=== PATIENT | female | born 1990 | race Caucasian/White ===

== ENCOUNTER → 2016-06-13 | Outpatient (REF) | payer OTHER, MEDICAID | END | disposition home or self-care (01) | LOC: M SFHCPLAZ 09:02 | PROVIDERS: ATTEND Family Medicine | DX: R46.89 Other symptoms and signs involving appearance and behavior (principal); R63.2 Polyphagia ==

== ENCOUNTER → 2016-11-04 | Outpatient (CLI) | payer OTHER, MEDICAID | LOC: M LAB 14:21 | PROVIDERS: ATTEND Family Medicine | DX: E55.9 Vitamin D deficiency, unspecified (principal) ==

== ENCOUNTER → 2017-11-27 | Outpatient (CLI) | payer OTHER, MEDICAID ==
[2017-11-27 09:46] LABS: PROLACTIN 15.2 NG/ML
[2017-11-27 09:47] LABS: FOLLICLE STIMULATING HORMONE 9.6 mIU/mL; LUTEINIZING HORMONE 42.7 mIU/mL
[2017-11-30 08:11] LABS: ESTROGENS TOTAL 326 pg/mL (.)
== END ==
LOC: M LAB 08:41
DX: R45.1 Restlessness and agitation (principal)
CPT/HCPCS: 83001

== ENCOUNTER → 2018-06-05 | Outpatient (CLI) | payer OTHER, MEDICAID ==
[2018-06-05 14:35] LABS: ALBUMIN 3.8 GM/DL (3.2-5.2); ALT/SGPT 22 U/L (12-78); BILIRUBIN,DIRECT < 0.1 MG/DL (0.0-0.2); BILIRUBIN,TOTAL 0.2 MG/DL (0.2-1.0)
== END ==
LOC: M LAB 13:31
PROVIDERS: ATTEND Anesthesiology Pain Medicine
DX: Z79.899 Other long term (current) drug therapy (principal)

== ENCOUNTER → 2018-06-06 | Outpatient (REF) | payer OTHER, MEDICAID | LOC: M LAB REF 10:37 | PROVIDERS: ATTEND Anesthesiology Pain Medicine | DX: K30 Functional dyspepsia (principal); R19.4 Change in bowel habit ==

== ENCOUNTER → 2018-07-30 | Outpatient (CLI) | payer OTHER, MEDICAID ==
[2018-07-30 08:11] LABS: BASO # 0.1 10^3/uL (0.0-0.2); BASO % 0.6 % (0.0-1.0); EOS # 0.2 10^3/uL (0.0-0.50); EOS % 2.7 % (0.0-3.0); HEMATOCRIT 42.5 % (36.0-47.0); LYMPH # 2.3 10^3/uL (1.5-6.5); MEAN CORPUSCULAR HEMOGLOBIN 29.2 pg (27.0-33.0); MEAN CORPUSCULAR HGB CONC 32.9 g/dl (32.0-36.5); MEAN CORPUSCULAR VOLUME 88.5 fl (80.0-96.0); MONO # 0.6 10^3/uL (0.0-0.8); MONO % 7.1 % (0.0-5.0); NEUTROPHILS # 4.7 10^3/uL (1.8-7.7); PLATELET COUNT, AUTOMATED 250 10^3/uL (150-450); WHITE BLOOD COUNT 7.8 10^3/uL (4.0-10.0)
[2018-07-30 11:19] LABS: CHOLESTEROL LEVEL 194 MG/DL (<200); CHOLESTEROL RISK RATIO 2.939 (<5); FREE T3 3.2 PG/ML (2.2-4.0); FREE T4 1.15 NG/DL (0.76-1.46); HDL CHOLESTEROL 66 MG/DL (>40); LDL CHOLESTEROL 108 MG/DL (<100); NON-HDL-C 128 MG/DL; THYROID PEROXIDASE ANTIBODY < 28.0 U/ML (<60.0); TOTAL 25(OH) VITAMIN D 17.1 NG/ML (30.0-100.0); TRIGLYCERIDES LEVEL 99 MG/DL (<150)
[2018-08-01 14:25] LABS: TISSUE TRANSGLUTAMINASE IgA <2 U/mL (0-3); UNITSIGA FOR GLIADIN IGA 4 units (0-19); UNITSIGG FOR GLIADIN IGG 4 units (0-19)
== END ==
LOC: M LAB 07:35
PROVIDERS: ATTEND Nurse Practitioner Pediatrics
DX: F34.89 Other specified persistent mood disorders (principal)

== ENCOUNTER → 2018-09-10 | Outpatient (CLI) | payer OTHER, MEDICAID ==
[2018-09-10 20:41] LABS: BASO % 0.2 % (0.0-1.0); EOS % 0.2 % (0.0-3.0); HEMATOCRIT 43.9 % (36.0-47.0); HEMOGLOBIN 14.5 g/dl (12.0-15.5); LYMPH # 1.3 10^3/uL (1.5-6.5); LYMPH % 9.7 % (24.0-44.0); MEAN CORPUSCULAR VOLUME 87.8 fl (80.0-96.0); MONO # 0.3 10^3/uL (0.0-0.8); NEUTROPHILS # 11.4 10^3/uL (1.8-7.7); NEUTROPHILS % 87.5 % (36.0-66.0); PLATELET COUNT, AUTOMATED 238 10^3/uL (150-450); WHITE BLOOD COUNT 13.1 10^3/uL (4.0-10.0)
[2018-09-10 20:48] LABS: ALBUMIN 4.1 GM/DL (3.2-5.2); ALT/SGPT 37 U/L (12-78); BILIRUBIN,TOTAL 0.5 MG/DL (0.2-1.0); BLOOD UREA NITROGEN 19 MG/DL (7-18); CALCIUM LEVEL 9.5 MG/DL (8.5-10.1); CARBON DIOXIDE LEVEL 28 MEQ/L (21-32); CHLORIDE LEVEL 102 MEQ/L (98-107); CREATININE FOR GFR 0.71 MG/DL (0.55-1.30); GLOMERULAR FILTRATION RATE > 60.0 (>60); GLUCOSE, FASTING 127 MG/DL (70-100); LIPASE 81 U/L (73-393); POTASSIUM SERUM 4.4 MEQ/L (3.5-5.1); SODIUM LEVEL 138 MEQ/L (136-145); TOTAL PROTEIN 7.6 GM/DL (6.4-8.2)
--- NOTE | 2018-09-11 02:09 | REP ---
Clinical: Nausea and vomiting with abdominal pain. Technique: Upright view of the chest with supine and upright views of the abdomen and pelvis. Findings: Frontal upright view of the chest demonstrates no acute cardiopulmonary process or free air below the diaphragm to suspect pneumoperitoneum. Supine and upright views of the abdomen and pelvis demonstrate nonspecific bowel gas pattern without obstruction or perforation. No organomegaly. No abnormal calcifications. Skeletal structures normal for age. Impression: Nonspecific bowel gas pattern. Electronically Signed by Gelacio Dias MD 09/11/2018 02:02 A
== END ==
LOC: M WUC 17:11
PROVIDERS: ATTEND Physician Assistant
DX: R11.2 Nausea with vomiting, unspecified (principal)

== ENCOUNTER 2018-11-20 06:42 | Day surgery (SDC) | payer OTHER, MEDICAID ==
[~2018-11-20] VITALS: Ht 154.9 cm; Wt 70.3 kg
[~2018-11-20 06:42] MED LIST: CETI10CH PO; HALO1TA PO; HM V4000 PO; METF500T13 PO; NS 1,000 ML IV ONE; ZOLO50TA PO
[2018-11-20] MEDS ORDERED: LIDOCAINE 2% INJ 100 MG/5 ML SDV (FOR ANES.) As Ordered ONE (07:08)
[2018-11-20] MEDS ORDERED: PROPOFOL 200 MG/20 ML VIAL As Ordered ONE (07:08)
[2018-11-20] MEDS ORDERED: MIDAZOLAM INJ 2 MG/2 ML VIAL (J2250) As Ordered ONE (07:26)
[2018-11-20] MEDS ORDERED: fentaNYL 100 MCG/2 ML INJECTION (J3010) As Ordered ONE (07:26)
--- NOTE | 2018-11-20 08:42 | ROOR ---
Patient Name: Coty Hurtado Procedure Date: 11/20/2018 8:07 AM Date of : 1990 Age: 28 Room: [facility] Gender: Female Note Status: Finalized Procedure: Upper GI endoscopy Indications: Persistent vomiting of unknown cause Providers: Agustin Ha MD Referring MD: ELIZABETH Goodman Requesting Provider: Medicines: Monitored Anesthesia Care Complications: No immediate complications. Procedure: Pre-Anesthesia Assessment: - Prior to the procedure, a History and Physical was performed, and patient medications and allergies were reviewed. The patient is competent. The risks and benefits of the procedure and the sedation options and risks were discussed with the patient. All questions were answered and informed consent was obtained. Patient identification and proposed procedure were verified by the physician, the nurse and the anesthesiologist in the procedure room. Mental Status Examination: alert and oriented. Airway Examination: normal oropharyngeal airway and neck mobility. Respiratory Examination: clear to auscultation. CV Examination: normal. Prophylactic Antibiotics: The patient does not require prophylactic antibiotics. Prior Anticoagulants: The patient has taken no previous anticoagulant or antiplatelet agents. ASA Grade Assessment: II - A patient with mild systemic disease. After reviewing the risks and benefits, the patient was deemed in satisfactory condition to undergo the procedure. The anesthesia plan was to use monitored anesthesia care (MAC). Immediately prior to administration of medications, the patient was re-assessed for adequacy to receive sedatives. The heart rate, respiratory rate, oxygen saturations, blood pressure, adequacy of pulmonary ventilation, and response to care were monitored throughout the procedure. The physical status of the patient was re-assessed after the procedure. The Endoscope was introduced through the mouth, and advanced to the second part of duodenum. The upper GI endoscopy was accomplished without difficulty. The patient tolerated the procedure well. Findings: The Z-line was regular and was found 35 cm from the incisors. Normal mucosa was found in the entire esophagus. Biopsies were obtained from the proximal and distal esophagus with cold forceps for histology of suspected eosinophilic esophagitis. Verification of patient identification for the specimen was done by the physician and nurse using the patient's name, date and medical record number. Estimated blood loss was minimal. Scattered minimal inflammation characterized by erythema and granularity was found in the gastric antrum. Biopsies were taken with a cold forceps for Helicobacter pylori testing. The duodenal bulb and second portion of the duodenum were normal. Biopsies for histology were taken with a cold forceps for evaluation of celiac disease. Impression: - Z-line regular, 35 cm from the incisors. - Normal mucosa was found in the entire esophagus. Biopsied. - Gastritis. Biopsied. - Normal duodenal bulb and second portion of the duodenum. Biopsied. Recommendation: - Patient has a contact number available for emergencies. The signs and symptoms of potential delayed complications were discussed with the patient. Return to normal activities tomorrow. Written discharge instructions were provided to the patient. - Resume previous diet. - Continue present medications. - Await pathology results. - Telephone GI clinic for pathology results in 2 weeks. - Return to primary care physician. Agustin Ha MD Agustin Ha MD 11/20/2018 8:41:53 AM Electronically signed by Agustin Ha MD Number of Addenda: 0 Note Initiated On: 11/20/2018 8:07 AM Estimated Blood Loss: Estimated blood loss was minimal.
[2018-11-20 08:56] VITALS: BP 125/82
== END 2018-11-20 08:58 | disposition home or self-care (01) ==
LOC: M OPP 06:42
PROVIDERS: ATTEND Internal Medicine Gastroenterology
DX: K29.70 Gastritis, unspecified, without bleeding (principal); R11.10 Vomiting, unspecified; Z79.899 Other long term (current) drug therapy; Z88.2 Allergy status to sulfonamides
CPT/HCPCS: 43239; 88305; J2250; J3010

== ENCOUNTER → 2019-03-19 | Outpatient (REF) | payer OTHER, MEDICAID ==
[~2019-03-19] MED LIST changes: -NS 1,000 ML IV ONE
[2019-03-19 13:23] LABS: ALBUMIN 3.9 GM/DL (3.2-5.2); ALT/SGPT 32 U/L (12-78); BILIRUBIN,TOTAL 0.3 MG/DL (0.2-1.0); BLOOD UREA NITROGEN 16 MG/DL (7-18); CALCIUM LEVEL 9.5 MG/DL (8.5-10.1); CARBON DIOXIDE LEVEL 29 MEQ/L (21-32); CHLORIDE LEVEL 105 MEQ/L (98-107); CREATININE FOR GFR 0.74 MG/DL (0.55-1.30); GLOMERULAR FILTRATION RATE > 60.0 (>60); GLUCOSE, FASTING 86 MG/DL (70-100); POTASSIUM SERUM 4.8 MEQ/L (3.5-5.1); SODIUM LEVEL 139 MEQ/L (136-145); TOTAL PROTEIN 7.4 GM/DL (6.4-8.2)
[2019-03-19 13:35] LABS: HEMOGLOBIN A1c 5.5 %
== END ==
LOC: M SFHCADAM 09:33
PROVIDERS: ATTEND Family Medicine
DX: R63.5 Abnormal weight gain (principal); Z79.899 Other long term (current) drug therapy

== ENCOUNTER 2019-04-22 09:00 | Outpatient (RCR) | payer OTHER, MEDICAID | END 2019-04-30 | LOC: M ST 09:00 | PROVIDERS: ATTEND Physician Assistant | DX: G80.9 Cerebral palsy, unspecified (principal) ==

== ENCOUNTER 2019-05-27 10:00 | Outpatient (RCR) | payer OTHER, MEDICAID | END 2019-05-31 | LOC: M ST 10:00 | PROVIDERS: ATTEND Physician Assistant | DX: G80.9 Cerebral palsy, unspecified (principal) ==

== ENCOUNTER → 2019-06-20 | Outpatient (CLI) | payer OTHER, MEDICAID ==
[2019-06-20 07:33] LABS: BASO % 0.4 % (0.0-1.0); EOS # 0.2 10^3/uL (0.0-0.5); EOS % 2.2 % (0.0-3.0); HEMATOCRIT 42.7 % (36.0-47.0); HEMOGLOBIN 13.9 g/dl (12.0-15.5); LYMPH # 2.8 10^3/uL (1.5-5.0); LYMPH % 34.8 % (24.0-44.0); MEAN CORPUSCULAR HEMOGLOBIN 28.5 pg (27.0-33.0); MEAN CORPUSCULAR HGB CONC 32.6 g/dl (32.0-36.5); MEAN CORPUSCULAR VOLUME 87.5 fl (80.0-96.0); MONO # 0.7 10^3/uL (0.0-0.8); MONO % 8.8 % (0.0-5.0); NEUTROPHILS # 4.3 10^3/uL (1.5-8.5); NEUTROPHILS % 53.6 % (36.0-66.0); PLATELET COUNT, AUTOMATED 221 10^3/uL (150-450); RED BLOOD COUNT 4.88 10^6/uL (4.00-5.40); WHITE BLOOD COUNT 8.1 10^3/uL (4.0-10.0)
[2019-06-20 08:01] LABS: ERYTHROCYTE SEDIMENTATION RATE 8 mm/hr (0-20)
[2019-06-20 08:06] LABS: ALBUMIN 3.8 GM/DL (3.2-5.2); ALT/SGPT 28 U/L (12-78); BILIRUBIN,TOTAL 0.4 MG/DL (0.2-1.0); BLOOD UREA NITROGEN 17 MG/DL (7-18); C REACTIVE PROTEIN QUANTITATIV 0.54 MG/DL (0.00-0.30); CALCIUM LEVEL 8.7 MG/DL (8.5-10.1); CARBON DIOXIDE LEVEL 29 MEQ/L (21-32); CHLORIDE LEVEL 107 MEQ/L (98-107); CREATININE FOR GFR 0.74 MG/DL (0.55-1.30); FREE T4 1.03 NG/DL (0.76-1.46); GLOMERULAR FILTRATION RATE > 60.0 (>60); GLUCOSE, FASTING 94 MG/DL (70-100); IMMUNOGLOBULIN G 1260 MG/DL (681-1648); IRON (FE) 51 UG/DL (50-170); PERCENT SATURATION 16.4 % (13.2-45.0); POTASSIUM SERUM 4.6 MEQ/L (3.5-5.1); SODIUM LEVEL 140 MEQ/L (136-145); TOTAL IRON BINDING CAPACITY 311 UG/DL (250-450); TOTAL PROTEIN 7.4 GM/DL (6.4-8.2)
[2019-06-20 10:19] LABS: TOTAL 25(OH) VITAMIN D 44.2 NG/ML (30.0-100.0)
== END ==
LOC: M LAB 06:37
PROVIDERS: ATTEND Nurse Practitioner Pediatrics
DX: F34.81 Disruptive mood dysregulation disorder (principal); F02.81 Dementia in other diseases classified elsewhere, unspecified severity, with behavioral disturbance

== ENCOUNTER 2019-06-25 09:16 | Outpatient (RCR) | payer OTHER, MEDICAID | END 2019-06-29 | LOC: M ST 09:16 | PROVIDERS: ATTEND Physician Assistant | DX: G80.9 Cerebral palsy, unspecified (principal) ==

== ENCOUNTER 2019-07-09 13:00 | Outpatient (RCR) | payer OTHER, MEDICAID | END 2019-07-30 | LOC: M ST 13:00 | PROVIDERS: ATTEND Physician Assistant | DX: Z51.89 Encounter for other specified aftercare (principal); G80.9 Cerebral palsy, unspecified ==

== ENCOUNTER → 2019-11-01 | Outpatient (CLI) | payer OTHER, MEDICAID ==
[2019-11-01 14:49] LABS: ALBUMIN 3.7 GM/DL (3.2-5.2); ALT/SGPT 54 U/L (12-78); BILIRUBIN,DIRECT < 0.1 MG/DL (0.0-0.2); BILIRUBIN,TOTAL 0.3 MG/DL (0.2-1.0); CARBAMAZEPINE (TEGRETOL) LEVEL 4.3 UG/ML (4.0-10.0); TOTAL PROTEIN 7.3 GM/DL (6.4-8.2)
== END ==
LOC: M LAB 13:15
PROVIDERS: ATTEND Physician Assistant
DX: F84.0 Autistic disorder (principal)

== ENCOUNTER 2020-01-18 16:35 | Emergency (ER) | payer OTHER, MEDICAID ==
[~2020-01-18] VITALS: Ht 154.9 cm; Wt 63.3 kg
[2020-01-18] MEDS ORDERED: INVE1.5T PO (16:55)
[2020-01-18] MEDS ORDERED: SPRI28TA PO (16:55)
[2020-01-18] MEDS ORDERED: ONDANSETRON 4 MG ORAL DISINTEGRATING TAB PO ONE (18:30)
[2020-01-18 18:37] VITALS: BP 123/85
[2020-01-18] MEDS ORDERED: [UNRECOGNIZED DRUG - OTHER] (18:48)
== END 2020-01-18 19:09 | disposition home or self-care (01) ==
LOC: M ED 16:35
DX: H51.8 Other specified disorders of binocular movement (principal); F84.0 Autistic disorder; G80.9 Cerebral palsy, unspecified; E11.9 Type 2 diabetes mellitus without complications; K21.9 Gastro-esophageal reflux disease without esophagitis; Z88.2 Allergy status to sulfonamides; Z79.899 Other long term (current) drug therapy
CPT/HCPCS: 99283; Q0162

== ENCOUNTER → 2020-01-22 | Outpatient (CLI) | payer OTHER, MEDICAID ==
[~2020-01-22] MED LIST changes: +INVE1.5T PO; +SPRI28TA PO; +[UNRECOGNIZED DRUG - OTHER]
--- NOTE | 2020-01-27 06:47 | EEG ---
DATE: 01/22/2020 REFERRING PHYSICIAN: Catrachita Rodriguez DIAGNOSIS: Convulsions EEG #: [id number] HISTORY: The patient is a 29-year-old developmentally delayed woman, who had episodes of upward eye movements, looking up bilaterally since November 2019. The patient was being weaned off Tegretol. This electroencephalogram (EEG) was done to rule out epileptic potential. She is currently taking Zoloft, paliperidone, metformin, TECHNICAL DESCRIPTION: This digital electroencephalogram (EEG) was recorded by 21 scalp, ear and two electrocardiogram (EKG) electrodes and was reviewed in bipolar and referential montages following reformatting in 10-20 international placement system. INTERPRETATION: The patient was noted to be in awake and drowsy states during this electroencephalogram (EEG). Resting and awake background rhythm consisted of 10 Hz alpha activity measuring 15-40 microvolts in amplitude, which was symmetric and reactive to eye opening. Attenuation of posterior dominant rhythm was seen during transition to drowsiness. No sleep was achieved. Excessive muscle artifact was noted in bilateral frontal and temporal head vision. Hyperventilation could not be performed. Photic stimulation remained unremarkable. No focal, lateralizing or epileptiform abnormalities were seen. No relevant clinical activity was noted. Electrocardiogram (EKG) revealed normal sinus rhythm. CONCLUSION: This electroencephalogram (EEG) in awake and drowsy states is within normal limits. MTDD
== END ==
LOC: M SLEEP 07:57
PROVIDERS: ATTEND Emergency Medicine
DX: R56.9 Unspecified convulsions (principal)

== ENCOUNTER → 2020-03-25 | Outpatient (REF) | payer OTHER, MEDICAID ==
[2020-03-25 13:36] LABS: ALBUMIN 3.8 GM/DL (3.2-5.2); ALT/SGPT 24 U/L (12-78); BILIRUBIN,TOTAL 0.2 MG/DL (0.2-1.0); BLOOD UREA NITROGEN 12 MG/DL (7-18); CALCIUM LEVEL 9.7 MG/DL (8.5-10.1); CARBON DIOXIDE LEVEL 30 MEQ/L (21-32); CHLORIDE LEVEL 102 MEQ/L (98-107); CREATININE FOR GFR 0.76 MG/DL (0.55-1.30); GLOMERULAR FILTRATION RATE > 60.0 (>60); GLUCOSE, FASTING 88 MG/DL (70-100); POTASSIUM SERUM 4.1 MEQ/L (3.5-5.1); SODIUM LEVEL 139 MEQ/L (136-145); TOTAL PROTEIN 7.2 GM/DL (6.4-8.2)
[2020-03-25 13:56] LABS: HEMOGLOBIN A1c 5.1 %
== END ==
LOC: M SFHCADAM 09:09
PROVIDERS: ATTEND Physician Assistant
DX: R73.01 Impaired fasting glucose (principal); K59.09 Other constipation; K21.9 Gastro-esophageal reflux disease without esophagitis

== ENCOUNTER → 2021-02-18 | Outpatient (REF) | payer MEDICAID, OTHER | LOC: M SFHCADAM 17:47 | PROVIDERS: ATTEND Family Medicine | DX: R09.81 Nasal congestion (principal) ==

== ENCOUNTER → 2021-08-19 | Outpatient (REF) | payer MEDICAID ==
[~2021-08-19] MED LIST changes: -HALO1TA PO; +HALO1TAB PO
[2021-08-19 17:50] LABS: HEMATOCRIT 41.8 % (36.0-47.0); HEMOGLOBIN 13.8 g/dl (12.0-15.5); MEAN CORPUSCULAR HEMOGLOBIN 30.1 pg (27.0-33.0); MEAN CORPUSCULAR VOLUME 91.1 fl (80.0-96.0); PLATELET COUNT, AUTOMATED 247 10^3/uL (150-450); RED BLOOD COUNT 4.59 10^6/uL (4.00-5.40); WHITE BLOOD COUNT 9.2 10^3/uL (4.0-10.0)
[2021-08-19 18:23] LABS: ALBUMIN 3.9 GM/DL (3.2-5.2); ALT/SGPT 37 U/L (12-78); BILIRUBIN,TOTAL 0.2 MG/DL (0.2-1.0); BLOOD UREA NITROGEN 15 MG/DL (7-18); CALCIUM LEVEL 9.3 MG/DL (8.5-10.1); CARBON DIOXIDE LEVEL 30 MEQ/L (21-32); CHLORIDE LEVEL 105 MEQ/L (98-107); FREE T4 0.67 NG/DL (0.76-1.46); GLOMERULAR FILTRATION RATE > 60.0 (>60); GLUCOSE, FASTING 72 MG/DL (70-100); POTASSIUM SERUM 4.5 MEQ/L (3.5-5.1); SODIUM LEVEL 141 MEQ/L (136-145); TOTAL PROTEIN 7.1 GM/DL (6.4-8.2)
== END ==
LOC: M SFHCADAM 15:31
PROVIDERS: ATTEND Physician Assistant
DX: R55 Syncope and collapse (principal)

== ENCOUNTER → 2021-09-09 | Outpatient (REF) | payer MEDICAID ==
[2021-09-09 14:07] LABS: FREE T4 0.8 NG/DL (0.76-1.46); THYROID STIMULATING HORMONE 2.01 uIU/ML (0.358-3.740)
== END ==
LOC: M SFHCPLAZ 09:09
PROVIDERS: ATTEND Physician Assistant
DX: R79.89 Other specified abnormal findings of blood chemistry (principal)

== ENCOUNTER → 2021-10-14 | Outpatient (REF) | payer MEDICAID, OTHER | LOC: M SFHCDERM 17:20 | PROVIDERS: ATTEND Nurse Practitioner Family | DX: L85.9 Epidermal thickening, unspecified (principal) ==

== ENCOUNTER → 2021-10-31 | Outpatient (CLI) | payer MEDICAID, OTHER ==
[~2021-10-31] MED LIST changes: +CVS1CAP2 PO; +VITA100093 PO
== END ==
LOC: M LABSMTC 11:39
PROVIDERS: ATTEND Anesthesiology
DX: Z01.812 Encounter for preprocedural laboratory examination (principal); Z11.52 Encounter for screening for COVID-19

== ENCOUNTER 2021-11-03 10:32 | Day surgery (SDC) | payer OTHER ==
[~2021-11-03] VITALS: Ht 154.9 cm; Wt 65.3 kg
[~2021-11-03 10:32] MED LIST changes: +ceFAZolin SOD 2 GM in IV 1 EA IV ONE
[2021-11-03] MEDS ORDERED: LR 1,000 ML IV SCH (10:45)
[2021-11-03] MEDS ORDERED: LIDOCAINE 1% SDV 30ML VIAL As Ordered ONE (12:03)
[2021-11-03] MEDS ORDERED: MIDAZOLAM INJ 2MG/2ML VIAL (J2250 PER 1MG) As Ordered ONE (13:11)
[2021-11-03] MEDS ORDERED: fentaNYL 100 MCG/2 ML INJECTION As Ordered ONE (13:11)
[2021-11-03] MEDS ORDERED: ONDANSETRON 4MG 2ML VIAL As Ordered ONE (13:11)
[2021-11-03] MEDS ORDERED: propofoL 200 MG/20 ML VIAL As Ordered ONE (13:11)
[2021-11-03] MEDS ORDERED: LIDOCAINE 2% INJ 100 MG/5 ML SYRINGE As Ordered ONE (13:11)
[2021-11-03] MEDS ORDERED: MUPIROCIN 2% OINT 22 GM TUBE As Ordered ONE (13:16)
[2021-11-03 13:26] VITALS: BP 139/82
== END 2021-11-03 13:48 | disposition home or self-care (01) ==
LOC: M SDC 10:32
PROVIDERS: ATTEND Internal Medicine Cardiovascular Disease
DX: R55 Syncope and collapse (principal); I45.10 Unspecified right bundle-branch block; F41.9 Anxiety disorder, unspecified; I51.9 Heart disease, unspecified; K44.9 Diaphragmatic hernia without obstruction or gangrene; J21.9 Acute bronchiolitis, unspecified; J30.2 Other seasonal allergic rhinitis
CPT/HCPCS: 33285; 81025; C1764; J0690; J2250; J2405; J3010

== ENCOUNTER → 2021-11-09 | Outpatient (REF) | payer OTHER ==
[~2021-11-09] MED LIST changes: -ceFAZolin SOD 2 GM in IV 1 EA IV ONE
== END ==
LOC: M SFHCDERM 14:12
PROVIDERS: ATTEND Nurse Practitioner Family
DX: D22.5 Melanocytic nevi of trunk (principal)

== ENCOUNTER → 2021-12-14 | Outpatient (CLI) | payer MEDICAID, OTHER ==
[2021-12-14 15:21] LABS: BASO % 0.4 % (0.0-1.0); EOS # 0.2 10^3/uL (0.0-0.5); EOS % 1.6 % (0.0-3.0); HEMATOCRIT 41.7 % (36.0-47.0); HEMOGLOBIN 13.5 g/dl (12.0-15.5); LYMPH # 2.9 10^3/uL (1.5-5.0); LYMPH % 31.1 % (24.0-44.0); MEAN CORPUSCULAR HEMOGLOBIN 29.2 pg (27.0-33.0); MEAN CORPUSCULAR HGB CONC 32.4 g/dl (32.0-36.5); MEAN CORPUSCULAR VOLUME 90.1 fl (80.0-96.0); MONO # 0.6 10^3/uL (0.0-0.8); MONO % 6.6 % (2.0-8.0); NEUTROPHILS # 5.6 10^3/uL (1.5-8.5); NEUTROPHILS % 59.9 % (36.0-66.0); PLATELET COUNT, AUTOMATED 213 10^3/uL (150-450); RED BLOOD COUNT 4.63 10^6/uL (4.00-5.40); WHITE BLOOD COUNT 9.4 10^3/uL (4.0-10.0)
== END ==
LOC: M LAB 14:16
PROVIDERS: ATTEND Internal Medicine Cardiovascular Disease
DX: T81.41XA Infection following a procedure, superficial incisional surgical site, initial encounter (principal)

== ENCOUNTER → 2022-06-01 | Outpatient (CLI) | payer OTHER, MEDICAID ==
[2022-06-01 12:44] LABS: HEMATOCRIT 42.4 % (36.0-47.0); HEMOGLOBIN 13.6 g/dl (12.0-15.5); MEAN CORPUSCULAR HEMOGLOBIN 29.2 pg (27.0-33.0); MEAN CORPUSCULAR HGB CONC 32.1 g/dl (32.0-36.5); PLATELET COUNT, AUTOMATED 198 10^3/uL (150-450); RED BLOOD COUNT 4.66 10^6/uL (4.00-5.40); WHITE BLOOD COUNT 5.4 10^3/uL (4.0-10.0)
[2022-06-01 12:50] LABS: ALBUMIN 3.9 G/DL (3.2-5.2); ALKALINE PHOSPHATASE 69 U/L (46-116); ALT/SGPT 29 U/L (7.0-40); AST/SGOT 24 U/L (<34); BILIRUBIN,TOTAL 0.5 MG/DL (0.3-1.2); BLOOD UREA NITROGEN 15 MG/DL (9-23); CALCIUM LEVEL 8.9 MG/DL (8.5-10.1); CARBON DIOXIDE LEVEL 27 MMOL/L (20-31); CHLORIDE LEVEL 102 MMOL/L (98-107); CHOLESTEROL LEVEL 221 MG/DL (<200); GLOMERULAR FILTRATION RATE > 60.0 (>60); GLUCOSE, FASTING 90 MG/DL (60-100); HDL CHOLESTEROL 100.1 MG/DL (>40); LDL CHOLESTEROL 103.7 MG/DL (<100); NON-HDL-C 121 MG/DL; POTASSIUM SERUM 4.4 MMOL/L (3.5-5.1); SODIUM LEVEL 138 MMOL/L (136-145); TOTAL PROTEIN 6.8 G/DL (5.7-8.2); TRIGLYCERIDES LEVEL 86 MG/DL (<150)
[2022-06-01 12:51] LABS: FREE T4 0.84 NG/DL (0.89-1.76); THYROID STIMULATING HORMONE 2.541 uIU/ML (0.55-4.78); TOTAL 25(OH) VITAMIN D 33.4 NG/ML (20.0-100.0)
== END ==
LOC: M WUC 08:54
PROVIDERS: ATTEND Physician Assistant
DX: R63.5 Abnormal weight gain (principal); E55.9 Vitamin D deficiency, unspecified; F41.9 Anxiety disorder, unspecified; F33.8 Other recurrent depressive disorders; Z13.1 Encounter for screening for diabetes mellitus; Z13.220 Encounter for screening for lipoid disorders

== ENCOUNTER → 2022-11-24 | Outpatient (REF) | payer MEDICAID ==
[2022-11-24 13:40] LABS: HEMATOCRIT 42.9 % (36.0-47.0); HEMOGLOBIN 13.9 g/dl (12.0-15.5); MEAN CORPUSCULAR HEMOGLOBIN 29.4 pg (27.0-33.0); MEAN CORPUSCULAR HGB CONC 32.4 g/dl (32.0-36.5); MEAN CORPUSCULAR VOLUME 90.7 fl (80.0-96.0); PLATELET COUNT, AUTOMATED 253 10^3/uL (150-450); RED BLOOD COUNT 4.73 10^6/uL (4.00-5.40); WHITE BLOOD COUNT 6.7 10^3/uL (4.0-10.0)
[2022-11-24 14:00] LABS: HEMOGLOBIN A1c 5.5 % (4.0-6.0)
[2022-11-24 14:13] LABS: ALBUMIN 3.6 G/DL (3.2-5.2); ALKALINE PHOSPHATASE 60 U/L (46-116); ALT/SGPT 21 U/L (7.0-40); AST/SGOT 15 U/L (<34); BILIRUBIN,TOTAL 0.5 MG/DL (0.3-1.2); BLOOD UREA NITROGEN 17 MG/DL (9-23); CALCIUM LEVEL 9.2 MG/DL (8.5-10.1); CARBON DIOXIDE LEVEL 28 MMOL/L (20-31); CHLORIDE LEVEL 106 MMOL/L (98-107); CHOLESTEROL LEVEL 226 MG/DL (<200); CHOLESTEROL RISK RATIO 2.64 (<5); CREATININE FOR GFR 0.67 MG/DL (0.55-1.30); GLOMERULAR FILTRATION RATE > 60.0 (>60); GLUCOSE, FASTING 88 MG/DL (60-100); HDL CHOLESTEROL 85.3 MG/DL (>40); LDL CHOLESTEROL 120.7 MG/DL (<100); NON-HDL-C 140.7 MG/DL; POTASSIUM SERUM 4.5 MMOL/L (3.5-5.1); SODIUM LEVEL 139 MMOL/L (136-145); TOTAL 25(OH) VITAMIN D 63.3 NG/ML (20.0-100.0); TOTAL PROTEIN 7.1 G/DL (5.7-8.2); TRIGLYCERIDES LEVEL 100 MG/DL (<150)
== END ==
LOC: M SFHCADAM 08:10
PROVIDERS: ATTEND Physician Assistant
DX: E55.9 Vitamin D deficiency, unspecified (principal); R63.5 Abnormal weight gain; F41.9 Anxiety disorder, unspecified; Z13.1 Encounter for screening for diabetes mellitus; Z13.220 Encounter for screening for lipoid disorders; F33.8 Other recurrent depressive disorders

== ENCOUNTER → 2022-12-28 | Outpatient (CLI) | payer MEDICAID | LOC: M LAB 06:35 | PROVIDERS: ATTEND Physician Assistant | DX: R45.86 Emotional lability (principal) ==

== ENCOUNTER → 2023-02-10 | Outpatient (CLI) | payer MEDICAID | LOC: M LAB 06:55 | PROVIDERS: ATTEND Physician Assistant | DX: R79.89 Other specified abnormal findings of blood chemistry (principal) ==

== ENCOUNTER → 2023-05-16 | Outpatient (REF) | payer MEDICAID | LOC: M SFHCADAM 08:42 | PROVIDERS: ATTEND Physician Assistant | DX: Z53.9 Procedure and treatment not carried out, unspecified reason (principal) ==

== ENCOUNTER → 2023-05-19 | Outpatient (CLI) | payer MEDICAID ==
[2023-05-19 06:56] LABS: HEMATOCRIT 42.7 % (36.0-47.0); HEMOGLOBIN 14.2 g/dl (12.0-15.5); MEAN CORPUSCULAR HEMOGLOBIN 29.8 pg (27.0-33.0); MEAN CORPUSCULAR HGB CONC 33.3 g/dl (32.0-36.5); MEAN CORPUSCULAR VOLUME 89.7 fl (80.0-96.0); PLATELET COUNT, AUTOMATED 202 10^3/uL (150-450); RED BLOOD COUNT 4.76 10^6/uL (4.00-5.40); WHITE BLOOD COUNT 8.1 10^3/uL (4.0-10.0)
[2023-05-19 07:31] LABS: ALBUMIN 3.6 G/DL (3.2-5.2); ALKALINE PHOSPHATASE 53 U/L (46-116); ALT/SGPT 27 U/L (7.0-40); AST/SGOT 18 U/L (<34); BILIRUBIN,TOTAL 0.5 MG/DL (0.3-1.2); BLOOD UREA NITROGEN 15 MG/DL (9-23); CARBON DIOXIDE LEVEL 30 MMOL/L (20-31); CHLORIDE LEVEL 105 MMOL/L (98-107); CHOLESTEROL LEVEL 219 MG/DL (<200); CHOLESTEROL RISK RATIO 2.26 (<5); CREATININE FOR GFR 0.65 MG/DL (0.55-1.30); GLOMERULAR FILTRATION RATE > 60.0 (>60); GLUCOSE, FASTING 95 MG/DL (60-100); HDL CHOLESTEROL 96.9 MG/DL (>40); LDL CHOLESTEROL 103.3 MG/DL (<100); NON-HDL-C 122.1 MG/DL; SODIUM LEVEL 140 MMOL/L (136-145); TRIGLYCERIDES LEVEL 94 MG/DL (<150)
[2023-05-19 07:33] LABS: FREE T4 1.18 NG/DL (0.89-1.76); THYROID STIMULATING HORMONE 3.418 uIU/ML (0.55-4.78)
[2023-05-19 07:41] LABS: HEMOGLOBIN A1c 5.3 % (4.0-6.0)
[2023-05-19 09:58] LABS: BASO % 0.5 % (0.0-1.0); EOS # 0.1 10^3/uL (0.0-0.5); EOS % 1.2 % (0.0-3.0); LYMPH # 2.2 10^3/uL (1.5-5.0); LYMPH % 26.7 % (24.0-44.0); MONO # 0.6 10^3/uL (0.0-0.8); MONO % 7.5 % (2.0-8.0); NEUTROPHILS # 5.2 10^3/uL (1.5-8.5); NEUTROPHILS % 63.6 % (36.0-66.0)
[2023-05-19 14:17] LABS: PLATELET ESTIMATE NORMAL (NORMAL)
== END ==
LOC: M LAB 06:22
PROVIDERS: ATTEND Physician Assistant
DX: R73.03 Prediabetes (principal); R25.1 Tremor, unspecified

== ENCOUNTER → 2023-08-30 | Outpatient (CLI) | payer MEDICAID | LOC: M LAB 08:03 | PROVIDERS: ATTEND Internal Medicine | DX: R79.89 Other specified abnormal findings of blood chemistry (principal) ==

== ENCOUNTER → 2023-11-06 | Outpatient (CLI) | payer MEDICAID ==
[2023-11-06 07:21] LABS: BASO # 0.1 10^3/uL (0.0-0.2); BASO % 0.6 % (0.0-1.0); EOS # 0.3 10^3/uL (0.0-0.5); EOS % 3.5 % (0.0-3.0); HEMATOCRIT 41.6 % (36.0-47.0); HEMOGLOBIN 13.8 g/dl (12.0-15.5); LYMPH # 2.6 10^3/uL (1.5-5.0); LYMPH % 32.5 % (24.0-44.0); MEAN CORPUSCULAR HEMOGLOBIN 30.2 pg (27.0-33.0); MEAN CORPUSCULAR HGB CONC 33.2 g/dl (32.0-36.5); MONO # 0.6 10^3/uL (0.0-0.8); NEUTROPHILS # 4.5 10^3/uL (1.5-8.5); PLATELET COUNT, AUTOMATED 221 10^3/uL (150-450); RED BLOOD COUNT 4.57 10^6/uL (4.00-5.40); WHITE BLOOD COUNT 8.1 10^3/uL (4.0-10.0)
[2023-11-06 07:33] LABS: HEMOGLOBIN A1c 5.1 % (4.0-6.0)
[2023-11-06 07:50] LABS: ALBUMIN 3.2 G/DL (3.2-5.2); ALKALINE PHOSPHATASE 55 U/L (46-116); ALT/SGPT 29 U/L (7.0-40); AST/SGOT 16 U/L (<34); BILIRUBIN,TOTAL 0.4 MG/DL (0.3-1.2); BLOOD UREA NITROGEN 12 MG/DL (9-23); CARBON DIOXIDE LEVEL 29 MMOL/L (20-31); CHLORIDE LEVEL 106 MMOL/L (98-107); CHOLESTEROL LEVEL 222 MG/DL (<200); CREATININE FOR GFR 0.69 MG/DL (0.55-1.30); GLOMERULAR FILTRATION RATE > 60.0 (>60); GLUCOSE, FASTING 93 MG/DL (60-100); HDL CHOLESTEROL 96.4 MG/DL (>40); LDL CHOLESTEROL 102.8 MG/DL (<100); NON-HDL-C 125.6 MG/DL; POTASSIUM SERUM 4.8 MMOL/L (3.5-5.1); SODIUM LEVEL 138 MMOL/L (136-145); TOTAL PROTEIN 6.5 G/DL (5.7-8.2); TRIGLYCERIDES LEVEL 114 MG/DL (<150)
[2023-11-06 07:52] LABS: FREE T4 1.15 NG/DL (0.89-1.76); THYROID STIMULATING HORMONE 3.897 uIU/ML (0.55-4.78)
== END ==
LOC: M LAB 06:24
PROVIDERS: ATTEND Physician Assistant
DX: E66.3 Overweight (principal); R73.03 Prediabetes; Z13.220 Encounter for screening for lipoid disorders

== ENCOUNTER → 2024-02-12 | Outpatient (CLI) | payer MEDICAID | LOC: M LRY 09:56 | PROVIDERS: ATTEND Nurse Practitioner Family | DX: R11.10 Vomiting, unspecified (principal) ==

== ENCOUNTER → 2024-03-08 | Outpatient (CLI) | payer MEDICAID ==
[~2024-03-08] MED LIST changes: +E-Z-GAS II EFFERVESCENT PACKET (SODIUM BICARB./CITRIC ACID/SIMETHICONE) As Ordered ONE; +E-Z-HD 98% w/w 340GM SUSP BTL As Ordered ONE; +E-Z-PAQUE 96% w/w SUSP 176GM BTL As Ordered ONE
== END ==
LOC: M RAD 08:04
PROVIDERS: ATTEND Nurse Practitioner Family
DX: R11.10 Vomiting, unspecified (principal)

== ENCOUNTER → 2024-11-07 | Outpatient (CLI) | payer MEDICAID ==
[~2024-11-07] MED LIST changes: -E-Z-GAS II EFFERVESCENT PACKET (SODIUM BICARB./CITRIC ACID/SIMETHICONE) As Ordered ONE; -E-Z-HD 98% w/w 340GM SUSP BTL As Ordered ONE; -E-Z-PAQUE 96% w/w SUSP 176GM BTL As Ordered ONE
[2024-11-07 07:15] LABS: BASO # 0.0 10^3/uL (0.0-0.2); BASO % 0.6 % (0.0-1.0); EOS # 0.2 10^3/uL (0.0-0.5); EOS % 3.2 % (0.0-3.0); LYMPH # 2.3 10^3/uL (1.5-5.0); LYMPH % 35.0 % (24.0-44.0); MONO # 0.5 10^3/uL (0.0-0.8); MONO % 7.2 % (2.0-8.0); NEUTROPHILS # 3.5 10^3/uL (1.5-8.5); NEUTROPHILS % 53.8 % (36.0-66.0); PLATELET COUNT, AUTOMATED 200 10^3/uL (150-450)
[2024-11-07 07:44] LABS: ALT/SGPT 32 U/L (7.0-40); AST/SGOT 25 U/L (<34); CALCIUM LEVEL 8.9 MG/DL (8.5-10.1); CARBON DIOXIDE LEVEL 28 MMOL/L (20-31); CHLORIDE LEVEL 105 MMOL/L (98-107); CHOLESTEROL LEVEL 214 MG/DL (<200); CHOLESTEROL RISK RATIO 1.90 (<5); CREATININE FOR GFR 0.69 MG/DL (0.55-1.30); FREE T4 1.20 NG/DL (0.89-1.76); GLOMERULAR FILTRATION RATE > 90.0 (>60); LDL CHOLESTEROL 90.6 MG/DL (<100); NON-HDL-C 101.8 MG/DL; POTASSIUM SERUM 4.6 MMOL/L (3.5-5.1); SODIUM LEVEL 141 MMOL/L (136-145); TOTAL 25(OH) VITAMIN D 84.7 NG/ML (20.0-100.0); TRIGLYCERIDES LEVEL 56 MG/DL (<150)
[2024-11-07 07:45] LABS: ESTIMATED AVERAGE GLUCOSE 100.0 MG/DL (60-110)
== END ==
LOC: M LAB 06:51
PROVIDERS: ATTEND Physician Assistant
DX: N94.3 Premenstrual tension syndrome (principal); F63.9 Impulse disorder, unspecified; K21.00 Gastro-esophageal reflux disease with esophagitis, without bleeding; R73.01 Impaired fasting glucose; E55.9 Vitamin D deficiency, unspecified; R79.89 Other specified abnormal findings of blood chemistry